=== PATIENT | male | born 1995 | race Caucasian/White ===

== ENCOUNTER 2016-12-13 07:43 | Emergency (ER) | payer OTHER ==
[~2016-12-13] VITALS: Ht 177.8 cm; Wt 109.0 kg
[2016-12-13 07:48] VITALS: BP 141/70
[2016-12-13] MEDS ORDERED: methylPREDNISolone INJ 125 MG/2 ML VIAL (J2930) IV ONE (08:30)
[2016-12-13] MEDS ORDERED: diphenhydrAMINE INJ 50MG/ML VIAL (J1200) IV ONE (08:30)
[2016-12-13] MEDS ORDERED: HYDROCORTISONE 1% CREAM 30 GM TOP ONE (08:30)
[2016-12-13] MEDS ORDERED: PRED20TA PO (09:10)
[2016-12-13] MEDS ORDERED: CLAR1TAB2 PO (09:10)
[2016-12-13] MEDS ORDERED: HYDR1CRE TOP (09:42)
== END 2016-12-13 09:50 | disposition home or self-care (01) ==
LOC: M ED 07:43
DX: L25.5 Unspecified contact dermatitis due to plants, except food (principal)
CPT/HCPCS: 96374; 96375; 99283; J1200; J2930